=== PATIENT | male | born 1980 | race Caucasian/White ===

== ENCOUNTER 2018-11-10 14:04 | Emergency (ER) | payer OTHER ==
[~2018-11-10] VITALS: Ht 175.3 cm; Wt 70.3 kg
[~2018-11-10 14:04] MED LIST: ALBU90OI INH; ALBU90OI6 INH; AMOCLA875 PO; AZIT250 PO; CEPH500 PO; CLOT1TC TOP; CODGUAEL PO; CYCL10 PO; Clotrimazole AF30 GM TP; DOXY100 PO; GUAI1200ER; HYDACE5 PO; PROM25 PO; SULTRIDS PO; Ventolin/Prove6.7 GM
[2018-11-10] MEDS ORDERED: Keflex500 MG PO (15:00)
[2018-11-10] MEDS ORDERED: Bactrim Ds Tab1 EACH PO (15:00)
== END 2018-11-10 15:15 | disposition home or self-care (01) ==
LOC: ER 14:04
DX: L02.212 Cutaneous abscess of back [any part, except buttock and flank] (principal); L03.312 Cellulitis of back [any part except buttock and flank]; F17.200 Nicotine dependence, unspecified, uncomplicated
CPT/HCPCS: 99282

== ENCOUNTER → 2019-02-09 | Outpatient (CLI) | payer OTHER ==
[~2019-02-09] MED LIST changes: +Bactrim Ds Tab1 EACH PO; +Keflex500 MG PO
== END | disposition home or self-care (01) ==
LOC: LAB SHORT 08:40 → LAB 08:40
DX: L02.611 Cutaneous abscess of right foot (principal)
CPT/HCPCS: 87070; 87075; 87077; 87147; 87186; 87205